=== PATIENT | male | born 1995 | race Caucasian/White ===

== ENCOUNTER 2016-08-27 09:07 | Day surgery (SDC) | payer OTHER ==
[~2016-08-27] VITALS: Ht 182.9 cm; Wt 74.8 kg
[2016-08-27] MEDS ORDERED: BUPIVACAINE-MPF/EPI 0.25% 30 ML VIAL INJ ONE (10:26)
[2016-08-27] MEDS ORDERED: ceFAZolin 1,000 MG VIAL ONE (10:26)
[2016-08-27] MEDS ORDERED: KETOROLAC 30 MG/ML VIAL IVP ONE (10:34)
[2016-08-27] MEDS ORDERED: PROPOFOL 200 MG/20 ML VIAL IV ONE (10:34)
[2016-08-27] MEDS ORDERED: ONDANSETRON 4 MG/2 ML VIAL IVP ONE (10:34)
[2016-08-27] MEDS ORDERED: DEXAMETHASONE 4 MG/ML VIAL IVP ONE (10:34)
[2016-08-27] MEDS ORDERED: SEVOFLURANE 250 ML BTL INH ONE (10:34)
[2016-08-27] MEDS ORDERED: fentaNYL 0.05 MG/ML VIAL ONE (10:38)
[2016-08-27] MEDS ORDERED: HYDROmorphone PFS 2 MG/ML SYR ONE (10:39)
[2016-08-27] MEDS ORDERED: MORPHINE SULFATE 4 MG/ML SYR IV PRN (11:50)
[2016-08-27] MEDS ORDERED: MORPHINE SULFATE 2 MG/ML SYR IVP PRN (11:50)
[2016-08-27] MEDS ORDERED: HYDROcodone/APAP 5/325 MG 1 TAB TAB PO PRN (11:50)
[2016-08-27] MEDS ORDERED: HYDROmorphone 1 MG/ML AMP IVP PRN (11:50)
[2016-08-27] MEDS ORDERED: ONDANSETRON 4 MG/2 ML VIAL IV PRN (11:50)
== END 2016-08-27 14:45 | disposition home or self-care (01) ==
LOC: MMU 09:07 → MDS 09:07
PROVIDERS: ATTEND Surgery
DX: K40.90 Unilateral inguinal hernia, without obstruction or gangrene, not specified as recurrent (principal)
CPT/HCPCS: 49505; 71010; J0690; J1170; J2270; J3010; J3490; J7060; J7120; J1100; J1885; J2405; J2704

== ENCOUNTER 2016-09-05 19:25 | Emergency (ER) | payer OTHER ==
[~2016-09-05] VITALS: Ht 177.8 cm; Wt 74.8 kg
[2016-09-05 20:13] VITALS: BP 113/75
[2016-09-05 20:51] LABS: BASOPHILS # (AUTO) 0.1 K/uL (0.00-0.22); BASOPHILS % (AUTO) 0.9 % (0.0-2.0); EOSINOPHILS # (AUTO) 0.5 K/uL (0-0.4); HEMATOCRIT 43.4 % (36-52); HEMOGLOBIN 14.4 g/dL (12.0-18.0); LYMPHOCYTES # (AUTO) 2.2 K/uL (2.0-11.5); LYMPHOCYTES % (AUTO) 24.9 % (20.5-51.1); MEAN CORPUSCULAR HEMOGLOBIN 30 pg (27-31); MEAN CORPUSCULAR HGB CONC 33 g/dL (33-37); MEAN CORPUSCULAR VOLUME 89 fL (80-94); MONOCYTES # (AUTO) 0.7 K/uL (0.8-1.0); MONOCYTES % (AUTO) 8.1 % (1.7-9.3); NEUTROPHILS # (AUTO) 5.2 K/uL (1.8-7.7); NEUTROPHILS % (AUTO) 60.1 % (42.2-75.2); PLATELET COUNT (AUTO) 268 K/uL (140-450); RED BLOOD CELL COUNT(AUTO) 4.86 MIL/uL (4.20-6.10); RED CELL DISTRIBUTION WIDTH 12.2 % (11.6-13.7); WHITE BLOOD COUNT (AUTO) 8.7 K/uL (4.8-10.8)
[2016-09-05 21:09] LABS: ANION GAP 11.9 (8-16); CALCIUM 9.1 mg/dL (8.5-10.1); CARBON DIOXIDE 29.3 mmol/L (21-32); CREATININE 1.1 mg/dL (0.6-1.3); POTASSIUM 4.2 mmol/L (3.5-5.1)
[2016-09-05 21:17] LABS: ALBUMIN 3.9 g/dL (3.4-5.0); TOTAL BILIRUBIN 0.1 mg/dL (0.0-1.0); TOTAL PROTEIN, SERUM 7.4 g/dL (6.4-8.2)
--- NOTE | 2016-09-06 00:06 | NUR ---
TO ER BED 8
--- NOTE | 2016-09-06 00:15 | NUR ---
21 Y/O M W/C/O R LOWER ABD PAIN, AND REDNESS. DENIES ANY FEVER OR NAUSEA. PER PT HE HAD SURGERY ON 09/03/16. INCISION SLIGHTLY RED, NO DRAINAGE PRESENT. STABLES INTACT, INCISION REMAINS CLOSED. ER MD MADE AWARE.
[2016-09-06 00:40] VITALS: BP 117/68
--- NOTE | 2016-09-06 00:40 | NUR ---
Patient discharged with v/s stable. Written and verbal after care instructions given and explained. Patient alert, oriented and verbalized understanding of instructions. Ambulatory with steady gait. All questions addressed prior to discharge. ID band removed. Patient advised to follow up with PMD THIS WK OR RETURN TO ER IF CONDITION WORSENS. Rx oF MOTRIN 800MG given. Patient educated on indication of medication including possible reaction and side effects. Opportunity to ask questions provided and answered.
== END 2016-09-06 00:40 | disposition home or self-care (01) ==
LOC: MED 19:25
DX: G89.18 Other acute postprocedural pain (principal)
CPT/HCPCS: 36415; 80053; 83690; 85025; 99285